=== PATIENT | male | born 1995 | race Caucasian/White ===

== ENCOUNTER → 2023-02-09 | Outpatient (CLI) | payer OTHER ==
--- NOTE | 2023-02-09 19:56 | MR ---
EXAMINATION TYPE: MR cervical spine wo con DATE OF EXAM: 02/09/2023 COMPARISON: None HISTORY: Neck pain that radiates into left shoulder and down arm to fingers. CONTRAST: Performed utilizing 0 mL intravenous Gadavist gadolinium contrast. TECHNIQUE: Multiplanar multiecho imaging on a 3.0 Elizabeth magnet is performed through the cervical spin e. FINDINGS: The craniovertebral junction is normal. Vertebral body alignment is straightened. Disc h eights are preserved. Disc hydration is preserved. Vertebral body heights are preserved. C7-T1: No focal disc herniation or significant disc bulge is evident. No spinal canal stenosis or n eural foraminal stenosis is present. C6-7: Subtle left paracentral broad-based disc bulge is present with minimal anterior thecal sac cont act. No AP spinal canal stenosis present. No cord contact is evident. Neural foramen are widely paten t.. C5-6: Broad-based disc bulge is present in the left paracentral region with mild anterior thecal sac compression. No AP spinal canal stenosis is present. This comes in close approximation with the spina l cord without cord deformity or spinal canal stenosis. Neural foramen are patent.. C4-5: There is a tiny central protrusion with mild anterior thecal sac compression. No AP spinal joaquín l stenosis or neural foraminal stenosis. C3-4: No focal disc herniation or significant disc bulge is evident. No spinal canal stenosis or marcus ral foraminal stenosis is present. C2-3: No focal disc herniation or significant disc bulge is evident. No spinal canal stenosis or marcus ral foraminal stenosis is present. IMPRESSIONS: 1. Mild left paracentral disc bulging C5-6 with mild anterior thecal sac compression. 2. Subtle minimal left paracentral broad-based disc bulge may also be present at C6-7.
== END | disposition home or self-care (01) ==
LOC: RADMRIMAIN 18:45
PROVIDERS: ATTEND Orthopaedic Surgery
DX: M50.122 Cervical disc disorder at C5-C6 level with radiculopathy (principal); R53.1 Weakness
CPT/HCPCS: 72141